=== PATIENT | male | born 1955 | race Native Hawaiian/Other Pacific Islander ===

== ENCOUNTER 2017-03-07 10:42 | Emergency (ER) | payer OTHER, MEDICAID ==
--- NOTE | 2017-03-07 11:15 | C.PDOC ---
History Of Present Illness 61M c/o left hip pain and ankle pain after a fall this am around 745am at work. he says there was water on the floor and he slipped and fell on his left side. denies any head trauma or LOC. was able to get up and ambulate but has pain w weight bearing. Time Seen by Provider: 03/07/17 11:06 Chief Complaint (Nursing): Back Pain Past Medical History Vital Signs: Last Vital Signs Temp 98.4 F 03/07/17 10:53 Pulse 81 03/07/17 10:53 Resp 16 03/07/17 10:53 BP 128/77 03/07/17 10:53 Pulse Ox 100 03/07/17 11:18 - Medical History PMH: HTN Family History: States: Other Other Family History: nc - Social History Hx Alcohol Use: No Hx Substance Use: No - Immunization History Hx Tetanus Toxoid Vaccination: No Hx Influenza Vaccination: No Hx Pneumococcal Vaccination: No Review Of Systems Constitutional: Negative for: Fever Cardiovascular: Negative for: Chest Pain Respiratory: Negative for: Shortness of Breath Gastrointestinal: Negative for: Nausea, Vomiting, Abdominal Pain Musculoskeletal: Negative for: Back Pain, Hand Pain Neurological: Negative for: Weakness, Numbness, Headache Physical Exam - Physical Exam Appears: Well, Non-toxic, No Acute Distress Skin: Warm, Dry Head: Atraumatic, No Tenderness, No Swelling, No Abrasion, No Laceration Eye(s): bilateral: PERRL, EOMI Nose: No Epistaxis Lips: No Swelling Neck: Normal ROM, No Midline Cervical Tenderness Chest: No Deformity, No Tenderness Cardiovascular: Rhythm Regular Respiratory: No Decreased Breath Sounds, No Accessory Muscle Use Gastrointestinal/Abdominal: Soft, No Tenderness Back: No Vertebral Tenderness Extremity: No Swelling, Other (ttp med mal left ankle. rom wnl no edema. ) Pulses: Left Dorsalis Pedis: Normal Neurological/Psych: Oriented x3, Normal Motor, Normal Sensation, Other (no focal deficits) ED Course And Treatment O2 Sat by Pulse Oximetry: 100 Medical Decision Making Medical Decision Making: pt denied need for any pain medication Disposition - Disposition Disposition: HOME/ ROUTINE Disposition Time: 14:11 Condition: STABLE Forms: Posibl. (British) - Clinical Impression Clinical Impression: Contusion, hip
--- NOTE | 2017-03-07 13:45 | CT ---
PROCEDURE: CT left hip dated on 09/29/2016. HISTORY: pain after fall COMPARISON: None available. TECHNIQUE: Contiguous axial images of the left hip were obtained. Coronal and sagittal reformats were generated. This CT exam was performed using one or more of the following dose reduction techniques: Automated exposure control, adjustment of the mA and/or kV according to patient size, and/or use of iterative reconstruction technique. Radiation dose. Total DLP = 433.18 mGy-cm FINDINGS: BONES: No evidence of acute displaced fracture nor dislocation. The visualized osseous structures intact. The left femoral head is appropriately located within the left acetabulum. Small elliptical shaped sclerotic foci of the left femoral head consistent with bone islands or osteomas. . Moderate sclerosis left SI joint. LEFT HIP JOINT: Mild degenerative osteoarthritis with minor joint space narrowing SOFT TISSUES: Unremarkable. . Note made of small prostatic calcifications. Leatha. Small bilateral fat containing inguinal hernias are present. Leatha espinosa IMPRESSION: No evidence of acute displaced fracture nor dislocation. Mild DJD as described. Leatha
[2017-03-07 14:22] VITALS: BP 126/74; PULSE 72; RESP 17; TEMP 98.1; O2SAT 97
--- NOTE | 2017-03-07 17:26 | RAD ---
PROCEDURE: Left Ankle Radiographs. . HISTORY: fall pain COMPARISON: None FINDINGS: BONES: No evidence of acute displaced fracture nor dislocation. . Osseous structures appear intact. . Tiny plantar surface calcaneal enthesophyte. JOINTS: Ankle mortise maintained. Mild degenerative to osteoarthritis tibiotalar articulation. SOFT TISSUES: There may be some very minor bilateral soft tissue swelling OTHER FINDINGS: None. IMPRESSION: No acute displaced fracture nor dislocation. Minor DJD. If symptoms persist or occult fracture suspected clinically consider repeat radiographs in 5-10 days as most fractures should become radiographically evident in this timeframe
--- NOTE | 2017-03-07 19:19 | RAD ---
PROCEDURE: Left Hip X-ray Radiographs. HISTORY: fall pain COMPARISON: None. FINDINGS: BONES: No evidence of acute displaced fracture nor dislocation. The osseous structures appear intact. JOINTS: Joint spaces relatively preserved however there are the slight spurring changes along the superolateral margins of the acetabular roofs left greater than right. Sclerosis on both SI joints left greater than right. Degenerative spondylosis lower lumbosacral spine. SOFT TISSUES: Normal. OTHER FINDINGS: None. IMPRESSION: No evidence of acute displaced fracture nor dislocation. Consider followup CT scan if symptoms persist or occult fracture suspected clinically.
== END 2017-03-07 14:23 | disposition home or self-care (01) ==
LOC: C.ER 10:42
DX: S70.02XA Contusion of left hip, initial encounter (principal); W01.0XXA Fall on same level from slipping, tripping and stumbling without subsequent striking against object, initial encounter; Y92.89 Other specified places as the place of occurrence of the external cause; Y99.0 Civilian activity done for income or pay

== ENCOUNTER 2017-04-07 11:05 | Day surgery (SDC) | payer MEDICAID ==
[2017-03-31 08:00] VITALS: BMI 28.1
[2017-04-07] MEDS ORDERED: Lactated Ringer's 1,000 ML IV ONE ×3 (12:45→14:48)
[2017-04-07] MEDS ORDERED: Bupivacaine HCl 0.25% PF (10 ml) Inj ONE ×2 (12:55)
[2017-04-07] MEDS ORDERED: ceFAZolin IV 2 gm in Dextrose 0 GM/0 ML BAG IVPB ONE (12:56)
[2017-04-07] MEDS ORDERED: Propofol 10 mg/ml Inj (20 ML) ONE (13:06)
[2017-04-07] MEDS ORDERED: Midazolam 2 MG/2 ML VIAL ONE (13:06)
[2017-04-07] MEDS ORDERED: ceFAZolin IV 1 gm in Dextrose 1 GM/50 ML BAG IVPB ONE (13:53)
--- NOTE | 2017-04-07 14:53 | PCM.SURG1 ---
Surgeon's Initial Post Op Note - Surgeon's Notes Surgeon: Dr. Navarro Investment Recovery Technician: Ed PGY1 Type of Anesthesia: General Endo Pre-Operative Diagnosis: Umbilical Hernia Operative Findings: See operative report Post-Operative Diagnosis: same Operation Performed: Umbilical hernia repair with mesh Specimen/Specimens Removed: none Estimated Blood Loss: EBL {In ML}: 10 Blood Products Given: N/A Drains Used: No Drains Post-Op Condition: Good Date of Surgery/Procedure: 04/07/17 Time of Surgery/Procedure: 14:52
[2017-04-07] MEDS ORDERED: HYDROmorphone 0.5 mg/0.5 ml ISec IVP PRN (15:00)
[2017-04-07] MEDS ORDERED: Lactated Ringer's 1,000 ML IV SCH (15:00)
[2017-04-07 16:51] VITALS: RESP 16; TEMP 98.1
[2017-04-07] MEDS ORDERED: Oxycodone/Acetaminophen 5/325 mg Tab PO PRN (17:00)
[2017-04-07 18:36] VITALS: BP 124/76; PULSE 66; O2SAT 100
--- NOTE | 2017-04-09 07:25 | OP ---
PROCEDURE DATE: 04/07/2017 SURGEON: Lucina Navarro MD LICENSED ACUPUNCTURIST: Dr. Ward. ANESTHESIA: General. PREOPERATIVE DIAGNOSIS: Umbilical hernia. POSTOPERATIVE DIAGNOSIS: Umbilical hernia. PROCEDURE: Umbilical hernia repair with mesh. DESCRIPTION OF OPERATION: With the patient in the supine position under adequate general anesthesia, the abdomen was prepped and draped in the usual sterile manner. The umbilical skin was noted to be thin from stretching although no umbilical swelling was noted at the time of surgery and the skin was elevated and a semicircular infraumbilical incision was made, taken down through the full thickness of skin. The skin was completely elevated and the umbilical stalk was dissected. The skin was then divided off the umbilical stalk, revealing a small amount of omentum adherent to the edge of the stalk and the lower portion of the skin. This omentum was completely freed up and returned to the peritoneal cavity and the remainder of the umbilical stalk was then divided close to the abdominal wall. The umbilical defect was noted to be approximately 1.5 cm in diameter and palpation within the peritoneal cavity did not reveal any additional adherent viscera and no other fascial defect were palpable in the area of the umbilicus. A size small, 3.2-cm Ventralex umbilical hernia patch was selected and positioned within the defect and using the tails and the mesh suturing layer, the mesh was sutured circumferentially to the fascial edges using interrupted sutures of 2-0 Novafil. The mesh was noted to be well deployed and well approximated to the anterior abdominal wall circumferentially and the tails were trimmed. The umbilical skin was tacked down to the area of the fascia with a 4-0 plain gut suture and closure was performed with running subcuticular sutures of 4-0 Monocryl and Steri-Strips. An umbilical gauze was placed followed by a dry sterile dressing and the patient tolerated the procedure well and transferred to recovery room in stable condition. Estimated blood loss for the procedure was 10 mL. Lucina Navarro MD
== END 2017-04-07 18:34 | disposition home or self-care (01) ==
LOC: C.SDS 11:05
PROVIDERS: ATTEND Specialist
DX: K42.9 Umbilical hernia without obstruction or gangrene (principal)
CPT/HCPCS: 49585; 82948; J0690; J1170; J2250; J2704; J3010; J7120